=== PATIENT | male | born 1960 | race Caucasian/White ===

== ENCOUNTER → 2019-03-24 11:21 | Outpatient (CLI) | payer OTHER, SELFPAY ==
[2019-03-27 15:34] LABS: Fecal Immunochemical Test NOT DETECTED (NOT DETECTED)
== END ==
PROVIDERS: PCP Internal Medicine; Visit Provider Internal Medicine
DX: Z12.11 Encounter for screening for malignant neoplasm of colon (principal)
CPT/HCPCS: 82274

== ENCOUNTER → 2019-04-17 10:08 | Outpatient (CLI) | payer OTHER, SELFPAY ==
[2019-04-17 12:48] LABS: Add Manual Diff / Slide Review NO; Basophils Absolute Auto 100 /uL (0-100); Basophils Percent Auto 0.6 % (0-2); Eosinophils Absolute Auto 200 /uL (0-450); Eosinophils Percent Auto 2.4 % (2-4); Hematocrit 41.4 % (41-53); Hemoglobin 14.5 g/dL (13.5-17.5); Lymphocytes Absolute Auto 3600 /uL (1100-4500); Lymphocytes Percent Auto 38.9 % (25-40); Mean Corpuscular HGB Conc 35.2 % (30-36); Mean Corpuscular Hemoglobin 33.2 PG (26-34); Mean Corpuscular Volume 94.5 fL (80-100); Monocytes Absolute Auto 700 /uL (0-900); Monocytes Percent Auto 8.1 % (3-14); Neutrophils Absolute Auto 4600 /uL (1500-7000); Platelet Count 267 X10^3/uL (150-400); Red Blood Cell Count 4.38 X10^6/uL (4.5-5.9); Red Cell Distribution Width 13.9 % (11.6-14.8); White Blood Cell Count 9.2 X10^3/uL (4.5-11.0)
[2019-04-17 13:30] LABS: HEMOLYSIS < 15 (0-50); Iron 121 ug/dL (49-181)
[2019-04-17 13:39] LABS: Alanine Aminotransferase 39 IU/L (<50); Albumin 4.4 g/dL (3.5-5.0); Albumin Globulin Ratio 1.5 (1.0-2.8); Alkaline Phosphatase 41 U/L (38-126); Aspartate Aminotransferase 34 IU/L (17-59); BUN Creatinine Ratio 17.1 (6-22); Bilirubin Total 0.6 mg/dL (0.2-1.3); Blood Urea Nitrogen 24 mg/dL (9-20); Calcium 9.5 mg/dL (8.4-10.2); Carbon Dioxide 25 mmol/L (22-32); Chloride 102 mmol/L (98-107); Cholesterol 118 mg/dL (140-199); Estimated Glomerular Filt Rate 51.5 mL/min (>60); Globulin 2.9 g/dL (1.7-4.1); Glucose 120 mg/dL (80-110); HDL Cholesterol 30 mg/dL (40-60); HEMOLYSIS < 15 (0-50); LDL Cholesterol Calculated 55 mg/dL (<100); Potassium 3.7 mmol/L (3.4-5.1); Sodium 139 mmol/L (137-145); Total Protein 7.3 g/dL (6.3-8.2); Triglycerides 164 mg/dL (35-150)
[2019-04-17 13:41] LABS: Percent Iron Saturation 36 % (20-50); Total Iron Binding Capacity 340 ug/dL (261-462); Transferrin 270 mg/dL (206-381)
== END ==
PROVIDERS: PCP Internal Medicine; Visit Provider Internal Medicine
DX: E78.5 Hyperlipidemia, unspecified (principal); I10 Essential (primary) hypertension; R79.89 Other specified abnormal findings of blood chemistry
CPT/HCPCS: 36415; 80053; 80061; 82728; 83540; 83550; 85025

== ENCOUNTER → 2019-10-26 08:41 | Outpatient (CLI) | payer OTHER, SELFPAY ==
[2019-10-26 10:07] LABS: Alanine Aminotransferase 32 IU/L (<50); Albumin 4.3 g/dL (3.5-5.0); Albumin Globulin Ratio 1.4 (1.0-2.8); Alkaline Phosphatase 47 U/L (38-126); Aspartate Aminotransferase 30 IU/L (17-59); BUN Creatinine Ratio 34.2 (6-22); Bilirubin Total 0.4 mg/dL (0.2-1.3); Blood Urea Nitrogen 38 mg/dL (9-20); Calcium 9.5 mg/dL (8.4-10.2); Carbon Dioxide 27 mmol/L (22-32); Chloride 102 mmol/L (98-107); Cholesterol 138 mg/dL (140-199); Estimated Glomerular Filt Rate > 60.0 mL/min (>60); Globulin 3.1 g/dL (1.7-4.1); Glucose 110 mg/dL (80-110); HDL Cholesterol 26 mg/dL (40-60); HEMOLYSIS < 15 (0-50); LDL Cholesterol Calculated 38 mg/dL (<100); Potassium 3.8 mmol/L (3.4-5.1); Sodium 137 mmol/L (137-145); Total Protein 7.4 g/dL (6.3-8.2); Triglycerides 371 mg/dL (35-150)
== END ==
PROVIDERS: PCP Internal Medicine; Referring Provider Internal Medicine; Visit Provider Internal Medicine
DX: E78.5 Hyperlipidemia, unspecified (principal); I10 Essential (primary) hypertension; N18.3 Chronic kidney disease, stage 3 (moderate)
CPT/HCPCS: 36415; 80053; 80061

== ENCOUNTER → 2020-03-18 08:12 | Outpatient (CLI) | payer OTHER, SELFPAY ==
[2020-03-18 10:07] LABS: Alanine Aminotransferase 49 IU/L (<50); Albumin 4.2 g/dL (3.5-5.0); Albumin Globulin Ratio 1.3 (1.0-2.8); Alkaline Phosphatase 40 U/L (38-126); Aspartate Aminotransferase 36 IU/L (17-59); BUN Creatinine Ratio 20.3 (6-22); Bilirubin Total 0.8 mg/dL (0.2-1.3); Blood Urea Nitrogen 26 mg/dL (9-20); Calcium 9.3 mg/dL (8.4-10.2); Carbon Dioxide 28 mmol/L (22-32); Chloride 99 mmol/L (98-107); Cholesterol 112 mg/dL (140-199); Estimated Glomerular Filt Rate 56.9 mL/min (>60); Globulin 3.3 g/dL (1.7-4.1); Glucose 127 mg/dL (80-110); HDL Cholesterol 33 mg/dL (40-60); HEMOLYSIS < 15 (0-50); LDL Cholesterol Calculated 48 mg/dL (<100); Potassium 3.4 mmol/L (3.4-5.1); Sodium 135 mmol/L (137-145); Total Protein 7.5 g/dL (6.3-8.2); Triglycerides 154 mg/dL (35-150)
[2020-03-18 10:19] LABS: LDL Cholesterol Direct 52 mg/dL (<100)
== END ==
PROVIDERS: PCP Internal Medicine; Referring Provider Internal Medicine; Visit Provider Internal Medicine
DX: E78.2 Mixed hyperlipidemia (principal); N18.30 Chronic kidney disease, stage 3 unspecified
CPT/HCPCS: 36415; 80053; 80061; 83721

== ENCOUNTER → 2020-12-02 18:47 | Outpatient (CLI) | payer OTHER, SELFPAY ==
[2020-12-02 19:47] LABS: COVID19 -Nasal RAPID Negative (Negative)
== END ==
PROVIDERS: PCP Internal Medicine; Visit Provider Nurse Practitioner
DX: R05 Cough (principal); Z20.822 Contact with and (suspected) exposure to COVID-19
CPT/HCPCS: 87635

== ENCOUNTER → 2020-12-06 07:38 | Outpatient (CLI) | payer OTHER, SELFPAY ==
[2020-12-06 09:14] LABS: Alanine Aminotransferase 39 IU/L (<50); Albumin 4.3 g/dL (3.5-5.0); Albumin Globulin Ratio 1.3 (1.0-2.8); Alkaline Phosphatase 47 U/L (38-126); Aspartate Aminotransferase 33 IU/L (17-59); BUN Creatinine Ratio 23.9 (6-22); Bilirubin Total 0.6 mg/dL (0.2-1.3); Blood Urea Nitrogen 28 mg/dL (9-20); Calcium 9.5 mg/dL (8.4-10.2); Carbon Dioxide 26 mmol/L (22-32); Chloride 99 mmol/L (98-107); Cholesterol 122 mg/dL (140-199); Estimated Glomerular Filt Rate > 60.0 mL/min (>60); Globulin 3.2 g/dL (1.7-4.1); Glucose 141 mg/dL (80-110); HDL Cholesterol 34 mg/dL (40-60); HEMOLYSIS < 15 (0-50); LDL Cholesterol Calculated 48 mg/dL (<100); Sodium 134 mmol/L (137-145); Total Protein 7.5 g/dL (6.3-8.2); Triglycerides 202 mg/dL (35-150)
== END ==
PROVIDERS: PCP Internal Medicine; Referring Provider Internal Medicine; Visit Provider Internal Medicine
DX: I10 Essential (primary) hypertension (principal); E78.2 Mixed hyperlipidemia; R73.09 Other abnormal glucose; N18.30 Chronic kidney disease, stage 3 unspecified
CPT/HCPCS: 36415; 80053; 80061

== ENCOUNTER → 2020-12-27 16:56 | Outpatient (CLI) | payer OTHER, SELFPAY ==
[2020-12-27 18:22] LABS: BUN Creatinine Ratio 16.4 (6-22); Blood Urea Nitrogen 19 mg/dL (9-20); Calcium 9.6 mg/dL (8.4-10.2); Carbon Dioxide 30 mmol/L (22-32); Chloride 99 mmol/L (98-107); Estimated Glomerular Filt Rate > 60.0 mL/min (>60); Glucose 120 mg/dL (80-110); HEMOLYSIS < 15 (0-50); Potassium 3.1 mmol/L (3.4-5.1); Sodium 139 mmol/L (137-145)
[2020-12-27 18:25] LABS: Hemoglobin A1C% w Est Avg Glu 6.8 % (4.0-6.0)
== END ==
PROVIDERS: PCP Internal Medicine; Referring Provider Internal Medicine; Visit Provider Internal Medicine
DX: I10 Essential (primary) hypertension (principal); E78.5 Hyperlipidemia, unspecified; R73.9 Hyperglycemia, unspecified
CPT/HCPCS: 36415; 80048; 83036

== ENCOUNTER → 2021-01-28 15:18 | Outpatient (CLI) | payer OTHER, SELFPAY ==
--- NOTE | 2021-01-29 16:37 | DIAB.MNT ---
Initial Diabetes Medical Nutrition Therapy Assessment Name: Castro Fam Date: 01/28/21 Time: 330-510p Dx: Type II Diabetes Provider: Petey Preferred Learning Style: hands on / doing Helio presents today for initial visit, newly diagnosed with T2DM c HgA1c fo 6.8%. Maternal FH of Dm. Reports nutrition as his main concern today, though he is also wondering about blood glucose monitoring. States he travels q couple weeks for work. Reports barrier to food choices when traveling and staying in a hotel. High eating out frequency of fast food and restaurants. Reports limited produce access where he stays for work. Has recently reduced carb intake and has had intentional weight loss of 11-13#. Would like to eventually incorporate more complex carbs later, but would like to continue on low carb diet at this time. BP at PCP visit elevated at 166/96. Reports at home BG in range: 130/80s. Diet Recall: 8am: coffee, eggs, tomatoes, beef, cheese (if traveling nothing) 12p: chicken and veg soup (if traveling burger and [place]- has been ordering two sandwiches and omitting bread or fries; previously was fries and burger or two tostadas) 6p: protein, tuna, and vegetables (traveling often steak dinner) HS snack: nothing or grapes Beverage: 64-96oz water, wine 2-3 x per week Anthropometrics: Ht: 69 Wt: 223.4# today Weight history: 234.5# last provider visit 12/27/20 Physical Activity: Was going to the gym prior to pandemic. Recently started a walking program at home. Walks 4-6 x per week for 2 mi, 30 min. After getting booster J&J shot, he would like to return to gym. Self-Monitoring Blood Glucose: None, discussed potential for this if he is interested and benefits to seeing how interventions are impacting numbers. Also discussed how provider likely did not mention testing since HgA1c was just over 6.5%. If he wants to check, asked that he reach out to Dr. Angelo for supply rx. Diabetes Medications: None Pertinent Labs: HgA1c 6.8% cholesterol:122 L LDL: 48 TG 202 H HDL: 34 L K: 3.1 L (taking supplement) Past Medical History: (Last Updated 01/09/21 @ 15:59 by Santosh Angelo MD) Ankle pain (~2017) Left Chronic renal failure, stage 3 (moderate) Diabetes type 2, uncontrolled Elevated ferritin (~2016) negative hematology w/u History of kidney surgery (~2016) benign lesion removal left History of right knee surgery (~2013) Right knee cartilage removal S/P cholecystectomy (~2016) lap Vision disorder Use reading glasses Nutrition Rx: Carbohydrates: Meal: max 45-60g Snack: max 30g Fiber 25-38g Nutrition Diagnosis: - Inadequate fiber intake r/t omission of complex carbs aeb diet recall - Nutrition and food related knowledge deficit r/t new dx of T2DM aeb HgA1c of 6.8% Intervention: This participant was very receptive. Provided appropriate educational handouts. Discussed the following topics: Completed intake assessment. Discussed barriers to care. Pathophysiology of T2DM HgA1c, its correlation to blood glucose numbers, and rationale for goal Potential for SMBG Plate Method, impact of macronutrients on blood sugar, meal timing, carbohydrate counting, pairing macronutrients and spreading out complex carbohydrates for better blood glucose management Need for focus on heart healthy fats and fiber if he decides to omit CHO Recommended servings for carbohydrates at meals and snacks Heart health nutrition Brainstormed appropriate meal plan based on food preferences Eating on the go: nutrition bar, shelf stable snacks ie nuts, fast food and label reading Role of physical activity and following guidelines for safety Created SMART goals for patient self-care and success. Goals: Read labels for net carbs Keep sodium to 300-400 mg per meal (no more than 500-600mg) Look for places that sell fruits vegetables, cheese near by on next trip Follow-up: BIPIN DAN follow-up in 2-3 weeks Nalini Santiago RDN, NI Certified Diabetes Care and Advisor To [employer] P: [phone] Thank you for this referral
== END ==
PROVIDERS: PCP Internal Medicine; Referring Provider Internal Medicine; Visit Provider Internal Medicine
DX: E11.9 Type 2 diabetes mellitus without complications (principal); Z71.3 Dietary counseling and surveillance
CPT/HCPCS: 97802

== ENCOUNTER → 2021-02-19 15:49 | Outpatient (CLI) | payer OTHER, SELFPAY ==
--- NOTE | 2021-02-21 16:20 | DIAB.MNTFU ---
Follow-up Diabetes Medical Nutrition Therapy Assessment Name: Castro Fam Date: 02/19/21 Time: 4-510p Dx: Type II Diabetes Helio presents for nutrition follow-up. States he has been tracking food intake with new food scale. Also tracking weight and BP. Has been noticing a decrease in weight and BP since implementing changes. Utilizing line graphs to determine if he is meeting nutrition goals. States he is unsure if self-set goals are adequate. Would like to discuss this today. Currently aiming for: <2000 kcals (often around 1500 kcals daily) 80g fat 30g saturated fat (high) 2.3g sodium 150g carbs 25g fiber 100g protein Also reports increased vegetable intake on work trips. Has found a vegetarian restaurant that offers more nutritious foods per his report, ie brussel sprouts with almonds, and egg with aioli. Has also found a nutrition bar to take when traveling, as discussed. Purchased nuts and seeds for snacks. eating HB eggs for on-the-go breakfast and avoiding higher carb foods. Had noticed low fiber intake with omission of carbs, so has added ligia seeds to diet. Reports BP trending down to 120s over 70s (previously 130-140s over 90). Anthropometrics: Ht: 69 Wt: 217.2# (today) Weight history: -6.2# since last visit on 01/28/21 Physical Activity: walking 4 x per week for 2 mi. Received [employer] vacc booster, which was a barrier keeping him from returning to the gym originally. Now would like to wait until after when he will be in contact with young grandchildren. Self-Monitoring Blood Glucose: None Diabetes Medications: None Pertinent Labs: HgA1c 6.8% cholesterol:122 L LDL: 48 TG 202 H HDL: 34 L K: 3.1 L (taking supplement) Past Medical History: (Last Updated 01/09/21 @ 15:59 by Santosh Angelo MD) Ankle pain (~2016) Left Chronic renal failure, stage 3 (moderate) Diabetes type 2, uncontrolled Elevated ferritin (~2016) negative hematology w/u History of kidney surgery (~2016) benign lesion removal left History of right knee surgery (~2013) Right knee cartilage removal S/P cholecystectomy (~2016) lap Vision disorder Use reading glasses Nutrition Rx: Daily: 3810-9843 kcals 140-160g CHO 60g fat 11g saturated fat 100-120g protein 25-30g fiber 2300 mg sodium or less *can adjust to less protein and more fat if choosing heart healthy fats. Current sat fat intake high. Nutrition Diagnosis: Inadequate fiber intake r/t omission of complex carbs aeb diet recall- improved Nutrition and food related knowledge deficit r/t new dx of T2DM aeb HgA1c of 6.8%- improved Excessive saturated fat intake r/t nutrition knowledge deficit aeb nutrition goals per his report- new Intervention: This participant was very receptive. Provided appropriate educational handouts. Discussed the following topics: Changes to nutrition rx to support DM management and heart health Heart health nutrition: fats, fiber, and sodium Eating out Impact of tracking intake on weight and BP changes Diabetes remission Physical activity plan and progress Created SMART goals for patient self-care and success. Goals: Read labels for net carbs- met Keep sodium to 300-400 mg per meal (no more than 500-600mg)- met Look for places that sell fruits vegetables, cheese near by on next trip- met Change nutrition rx as discussed (tee to reduce sat fat intake)- new Return to gym after - new Follow-up: BIPIN DAN follow-up prn. Helio would like to call in April to discuss follow-up prn. Nalini Santiago, BIPIN, GERDAES Certified Diabetes Care and Structures Assembler P: [phone] Thank you for this referral
== END ==
PROVIDERS: PCP Internal Medicine; Referring Provider Internal Medicine; Visit Provider Internal Medicine
DX: E11.9 Type 2 diabetes mellitus without complications (principal); Z71.3 Dietary counseling and surveillance
CPT/HCPCS: 97803

== ENCOUNTER → 2021-03-24 08:21 | Outpatient (CLI) | payer OTHER, SELFPAY ==
[2021-03-24 10:29] LABS: Hemoglobin A1C% w Est Avg Glu 5.5 % (4.0-6.0)
[2021-03-24 10:38] LABS: Blood Urea Nitrogen 29 mg/dL (9-20); Calcium 9.5 mg/dL (8.4-10.2); Carbon Dioxide 28 mmol/L (22-32); Chloride 103 mmol/L (98-107); Glucose 109 mg/dL (80-110); HEMOLYSIS < 15 (0-50); Potassium 3.3 mmol/L (3.4-5.1); Sodium 140 mmol/L (137-145)
== END ==
PROVIDERS: PCP Internal Medicine; Referring Provider Internal Medicine; Visit Provider Internal Medicine
DX: E11.65 Type 2 diabetes mellitus with hyperglycemia (principal); I10 Essential (primary) hypertension
CPT/HCPCS: 36415; 80048; 83036

== ENCOUNTER → 2021-06-23 06:56 | Outpatient (CLI) | payer OTHER, SELFPAY ==
[2021-06-23 07:39] LABS: Hemoglobin A1C% w Est Avg Glu 6.1 % (4.0-6.0)
[2021-06-23 07:44] LABS: BUN Creatinine Ratio 20.9 (6-22); Blood Urea Nitrogen 27 mg/dL (9-20); Calcium 8.9 mg/dL (8.4-10.2); Carbon Dioxide 26 mmol/L (22-32); Chloride 106 mmol/L (98-107); Estimated Glomerular Filt Rate 56.3 mL/min (>60); Glucose 102 mg/dL (80-110); HEMOLYSIS < 15 (0-50); Potassium 3.8 mmol/L (3.4-5.1); Sodium 138 mmol/L (137-145)
[2021-06-23 19:35] LABS: Microalbumin Urine Random 2.3 mg/dL (0-1.6)
[2021-06-23 19:41] LABS: Creatinine Urine Random 181.4 mg/dL; Microalbumi Creatinin Ratio Ur 12.6 ug/mg CR (<30)
== END ==
PROVIDERS: PCP Internal Medicine; Referring Provider Internal Medicine; Visit Provider Internal Medicine
DX: E11.65 Type 2 diabetes mellitus with hyperglycemia (principal); I10 Essential (primary) hypertension
CPT/HCPCS: 36415; 80048; 82043; 82570; 83036

== ENCOUNTER → 2022-01-06 07:27 | Outpatient (CLI) | payer OTHER, SELFPAY ==
[2022-01-06 08:22] LABS: Hemoglobin A1C% w Est Avg Glu 6.1 % (4.0-6.0)
[2022-01-06 08:28] LABS: Alanine Aminotransferase 42 IU/L (<50); Albumin 4.5 g/dL (3.5-5.0); Albumin Globulin Ratio 1.2 (1.0-2.8); Alkaline Phosphatase 45 U/L (38-126); Aspartate Aminotransferase 35 IU/L (17-59); BUN Creatinine Ratio 18.6 (6-22); Bilirubin Total 0.7 mg/dL (0.2-1.3); Blood Urea Nitrogen 22 mg/dL (9-20); Calcium 9.1 mg/dL (8.4-10.2); Carbon Dioxide 28 mmol/L (22-32); Chloride 99 mmol/L (98-107); Cholesterol 131 mg/dL (140-199); Estimated Glomerular Filt Rate > 60 mL/min (>60); Globulin 3.9 g/dL (1.7-4.1); Glucose 137 mg/dL (80-110); HDL Cholesterol 33 mg/dL (40-60); HEMOLYSIS < 15 (0-50); LDL Cholesterol Calculated 68 mg/dL (<100); Potassium 3.3 mmol/L (3.4-5.1); Sodium 139 mmol/L (137-145); Total Protein 8.4 g/dL (6.3-8.2); Triglycerides 152 mg/dL (35-150)
== END ==
PROVIDERS: PCP Internal Medicine; Referring Provider Internal Medicine; Visit Provider Internal Medicine
DX: E11.9 Type 2 diabetes mellitus without complications (principal); E78.2 Mixed hyperlipidemia; I10 Essential (primary) hypertension; E11.65 Type 2 diabetes mellitus with hyperglycemia
CPT/HCPCS: 36415; 80053; 80061; 83036